=== PATIENT | male | born 1950 | race Caucasian/White ===

== ENCOUNTER 2018-12-19 08:26 | Observation (INO) | payer MEDICARE, OTHER ==
[2018-12-19] MEDS: ASPIRIN 325 MG TAB PO (08:45)
[2018-12-19 08:50] LABS: ADD MAN DIFF? NO
[2018-12-19 08:52] LABS: BASOPHILS % 0.5 % (0.0-2.0); EOSINOPHILS # 0.1 10^3/ul (0.0-0.5); EOSINOPHILS % 1.3 % (0.0-7.0); HEMATOCRIT 28.3 % (42.0-52.0); HEMOGLOBIN 9.4 g/dl (14.0-18.0); LYMPHOCYTES # 0.6 10^3/ul (0.8-2.9); LYMPHOCYTES % 15.6 % (15.0-51.0); MEAN CORPUSCULAR HEMOGLOBIN 30.8 pg (29.0-33.0); MEAN CORPUSCULAR HGB CONC 33.2 g/dl (32.0-37.0); MEAN CORPUSCULAR VOLUME 92.8 fl (82.0-101.0); MEAN PLATELET VOLUME 8.5 fl (7.4-10.4); MONOCYTE # 0.2 10^3/ul (0.3-0.9); NEUTROPHILS % 76.3 % (39.0-77.0); PLATELET COUNT 142 10^3/UL (140-415); RED BLOOD COUNT 3.05 10^6/ul (4.70-6.10); RED CELL DISTRIBUTION WIDTH 14.4 % (11.5-14.5)
[2018-12-19 09:02] LABS: HEMOGLOBIN A1C 6.2 % (0-5.9)
[2018-12-19 09:08] LABS: CHOL/HDL RATIO 3.8 RATIO; LDL CHOLESTEROL,CALCULATED 89 mg/dl
[2018-12-19 09:10] LABS: ANION GAP 15 (5-13); BLOOD UREA NITROGEN 32 mg/dl (7-20); CALCIUM 9.2 mg/dl (8.4-10.2); CARBON DIOXIDE 33 mmol/L (21-31); CHLORIDE 91 mmol/L (97-110); CHOLESTEROL 164 mg/dl (100-200); CREATINE KINASE 153 IU/L (23-200); CREATININE 4.86 mg/dl (0.61-1.24); Estimated GFR 12 mL/min (>60); GLUCOSE 103 mg/dl (70-220); HDL CHOLESTEROL 43 mg/dl (30-78); INR 0.92; POTASSIUM 3.9 mmol/L (3.5-5.1); PROTIME 12.5 Sec (11.9-14.9); SODIUM 139 mmol/L (135-144); TRIGLYCERIDES 162 mg/dl (0-149)
[2018-12-19 09:11] LABS: PARTIAL THROMBOPLASTIN TIME 32.9 Sec (23.0-35.0)
[2018-12-19 09:14] LABS: ETHANOL < 10.0 mg/dl (0-0)
[2018-12-19 09:22] LABS: CK INDEX 2.5; CK-MB 3.77 ng/ml (0.0-2.4)
[2018-12-19 09:23] LABS: TROPONIN-I 0.045 ng/ml (0.000-0.120)
[2018-12-19] MEDS ORDERED: ACETAMINOPHEN 325 MG TAB PO ×2 (10:00→12:00)
[2018-12-19] MEDS ORDERED: ONDANSETRON 4 MG INJ IV ×2 (10:00→12:00)
[2018-12-19] MEDS ORDERED: NACL 0.9% 3 ML SYG IV (12:00)
[2018-12-19] MEDS ORDERED: CALCIUM CARBONATE 750 MG CHEW TAB PO (12:30)
[2018-12-19] MEDS ORDERED: GLUCAGON 1 MG INJ IM (12:30)
[2018-12-19] MEDS ORDERED: ALBUMIN HUMAN 25% 100 ML IV (12:30)
[2018-12-19] MEDS ORDERED: GLUCOSE GEL 15 GRAM TUBE BUCCAL (12:30)
[2018-12-19] MEDS ORDERED: SODIUM CHLORIDE 0.9% 1L BAG IV (12:30)
[2018-12-19] MEDS ORDERED: GLUCOSE GEL 15 GRAM TUBE PO ×2 (12:30)
[2018-12-19] MEDS ORDERED: DEXTROSE 50% 50 ML SYRINGE IV ×2 (12:30)
[2018-12-19] MEDS ORDERED: hydrALAzine 20 MG INJ IV ×2 (12:30)
[2018-12-19] MEDS: IODIXANOL LOCM 100 ML BTL (14:47)
[2018-12-19] MEDS: SOD CHLORIDE 0.9% 100 ML (14:48)
[2018-12-19] MEDS: NIFEdipine (XL) 60 MG TAB PO (15:05)
[2018-12-19] MEDS: HEPARIN 5,000 UNIT/1 ML VIAL SC ×2 (15:09→21:13)
[2018-12-19] MEDS: NICOTINE (7 MG/24 HR) PATCH TRANSDERM (16:00)
[2018-12-19 17:05] LABS: CREATINE KINASE 135 IU/L (23-200)
[2018-12-19 17:18] LABS: CK INDEX 2.3
[2018-12-19 17:21] LABS: CK-MB 3.06 ng/ml (0.0-2.4)
[2018-12-19] MEDS: INSULIN ASPART [NOVOLOG] 3 ML PEN SC ×3 (17:55→20:54)
[2018-12-19] MEDS: CALCIUM ACETATE 667 MG CAP PO (18:15)
[2018-12-19] MEDS: SEVELAMER CARBONATE 0.8 GM PKT PO (18:16)
[2018-12-19] MEDS: ATORVASTATIN 40 MG TAB PO (20:53)
[2018-12-19] MEDS: GABAPENTIN 100 MG CAP PO (20:54)
[2018-12-19] MEDS: INSULIN GLARGINE [LANTus] (100 UNITS/ML) SYG SC (20:57)
[2018-12-20] MEDS: HEPARIN 5,000 UNIT/1 ML VIAL SC ×3 (05:10→21:12)
[2018-12-20 07:01] LABS: ADD MAN DIFF? NO
[2018-12-20 07:05] LABS: WHITE BLOOD COUNT 4.1 10^3/ul (4.8-10.8)
[2018-12-20 07:05] LABS: BASOPHILS % 0.2 % (0.0-2.0); HEMATOCRIT 26.6 % (42.0-52.0); HEMOGLOBIN 8.7 g/dl (14.0-18.0); LYMPHOCYTES # 0.9 10^3/ul (0.8-2.9); LYMPHOCYTES % 22.5 % (15.0-51.0); MEAN CORPUSCULAR HEMOGLOBIN 30.5 pg (29.0-33.0); MEAN CORPUSCULAR HGB CONC 32.7 g/dl (32.0-37.0); MEAN CORPUSCULAR VOLUME 93.3 fl (82.0-101.0); MEAN PLATELET VOLUME 9.1 fl (7.4-10.4); MONOCYTE # 0.4 10^3/ul (0.3-0.9); MONOCYTES % 9.3 % (0.0-11.0); NEUTROPHIL # 2.7 10^3/ul (1.6-7.5); NEUTROPHILS % 66.8 % (39.0-77.0); PLATELET COUNT 143 10^3/UL (140-415); RED BLOOD COUNT 2.85 10^6/ul (4.70-6.10); RED CELL DISTRIBUTION WIDTH 13.9 % (11.5-14.5)
[2018-12-20 07:35] LABS: ALANINE AMINOTRANSFERASE 10 IU/L (13-69); ALBUMIN 3.8 g/dl (3.3-4.9); ALBUMIN/GLOBULIN RATIO 1.11; ALKALINE PHOSPHATASE 69 IU/L (42-121); ANION GAP 14 (5-13); ASPARTATE AMINO TRANSFERASE 17 IU/L (15-46); BILIRUBIN,INDIRECT 0.1 mg/dl (0-1.1); BILIRUBIN,TOTAL 0.1 mg/dl (0.2-1.3); BLOOD UREA NITROGEN 50 mg/dl (7-20); CALCIUM 8.9 mg/dl (8.4-10.2); CARBON DIOXIDE 31 mmol/L (21-31); CHLORIDE 93 mmol/L (97-110); CREATININE 7.63 mg/dl (0.61-1.24); Estimated GFR 7 mL/min (>60); GLUCOSE 63 mg/dl (70-220); POTASSIUM 4.3 mmol/L (3.5-5.1); SODIUM 138 mmol/L (135-144); TOTAL PROTEIN 7.2 g/dl (6.1-8.1)
[2018-12-20 07:45] LABS: MAGNESIUM 2.5 mg/dl (1.7-2.5)
[2018-12-20 07:45] LABS: PHOSPHORUS 5.5 mg/dl (2.5-4.9)
[2018-12-20 07:55] LABS: TROPONIN-I 0.053 ng/ml (0.000-0.120)
[2018-12-20] MEDS: INSULIN ASPART [NOVOLOG] 3 ML PEN SC ×7 (07:55→21:00)
[2018-12-20] MEDS: SEVELAMER CARBONATE 0.8 GM PKT PO ×3 (08:54→17:17)
[2018-12-20] MEDS: ASPIRIN 81 MG TAB PO (08:55)
[2018-12-20] MEDS: CALCIUM ACETATE 667 MG CAP PO ×3 (08:55→17:15)
[2018-12-20] MEDS: MULTIVIT/CA CARB/B CMPLX/FA TAB PO (08:55)
[2018-12-20] MEDS: NICOTINE (7 MG/24 HR) PATCH TRANSDERM (08:55)
[2018-12-20] MEDS: NIFEdipine (XL) 60 MG TAB PO (09:00)
[2018-12-20] MEDS: ATORVASTATIN 40 MG TAB PO (20:54)
[2018-12-20] MEDS: GABAPENTIN 100 MG CAP PO (20:54)
[2018-12-20] MEDS: INSULIN GLARGINE [LANTus] (100 UNITS/ML) SYG SC (21:02)
[2018-12-21] MEDS: HEPARIN 5,000 UNIT/1 ML VIAL SC ×2 (06:39→15:25)
[2018-12-21] MEDS: INSULIN ASPART [NOVOLOG] 3 ML PEN SC ×4 (07:55→12:34)
[2018-12-21] MEDS: CALCIUM ACETATE 667 MG CAP PO ×2 (08:16→12:31)
[2018-12-21] MEDS: SEVELAMER CARBONATE 0.8 GM PKT PO ×2 (08:16→12:30)
[2018-12-21] MEDS: NICOTINE (7 MG/24 HR) PATCH TRANSDERM (08:16)
[2018-12-21] MEDS: MULTIVIT/CA CARB/B CMPLX/FA TAB PO (08:16)
[2018-12-21] MEDS: ASPIRIN 81 MG TAB PO (08:16)
[2018-12-21 08:25] LABS: ADD MAN DIFF? NO
[2018-12-21 08:28] LABS: BASOPHILS % 0.4 % (0.0-2.0); EOSINOPHILS # 0.1 10^3/ul (0.0-0.5); HEMATOCRIT 26.3 % (42.0-52.0); HEMOGLOBIN 8.8 g/dl (14.0-18.0); LYMPHOCYTES # 0.9 10^3/ul (0.8-2.9); LYMPHOCYTES % 18.2 % (15.0-51.0); MEAN CORPUSCULAR HGB CONC 33.5 g/dl (32.0-37.0); MEAN CORPUSCULAR VOLUME 89.8 fl (82.0-101.0); MONOCYTE # 0.5 10^3/ul (0.3-0.9); MONOCYTES % 9.4 % (0.0-11.0); NEUTROPHIL # 3.4 10^3/ul (1.6-7.5); NEUTROPHILS % 70.8 % (39.0-77.0); PLATELET COUNT 149 10^3/UL (140-415); RED BLOOD COUNT 2.93 10^6/ul (4.70-6.10); RED CELL DISTRIBUTION WIDTH 13.7 % (11.5-14.5)
[2018-12-21 08:28] LABS: WHITE BLOOD COUNT 4.8 10^3/ul (4.8-10.8)
[2018-12-21 08:58] LABS: ANION GAP 19 (5-13); BLOOD UREA NITROGEN 70 mg/dl (7-20); CARBON DIOXIDE 27 mmol/L (21-31); CHLORIDE 91 mmol/L (97-110); Estimated GFR 5 mL/min (>60); GLUCOSE 57 mg/dl (70-220); POTASSIUM 5.2 mmol/L (3.5-5.1); SODIUM 137 mmol/L (135-144)
[2018-12-21 09:10] LABS: MAGNESIUM 2.7 mg/dl (1.7-2.5)
[2018-12-21 09:10] LABS: PHOSPHORUS 6.2 mg/dl (2.5-4.9)
[2018-12-21 11:19] LABS: HEPATITIS B SURFACE ANTIGEN NEGATIVE (NEGATIVE)
[2018-12-21] MEDS: NIFEdipine (XL) 60 MG TAB PO (14:42)
== END 2018-12-21 16:30 | disposition home or self-care (01) ==
LOC: E/R 08:26 → TEL 09:51
PROVIDERS: Internal Medicine
DX: G93.40 Encephalopathy, unspecified (principal); I65.23 Occlusion and stenosis of bilateral carotid arteries; I65.02 Occlusion and stenosis of left vertebral artery; I70.8 Atherosclerosis of other arteries; I12.0 Hypertensive chronic kidney disease with stage 5 chronic kidney disease or end stage renal disease; E11.22 Type 2 diabetes mellitus with diabetic chronic kidney disease; N18.6 End stage renal disease; Z99.2 Dependence on renal dialysis; Z79.4 Long term (current) use of insulin; E78.00 Pure hypercholesterolemia, unspecified; E78.5 Hyperlipidemia, unspecified; D64.9 Anemia, unspecified; F17.200 Nicotine dependence, unspecified, uncomplicated
CPT/HCPCS: 36415; 70450; 70496; 70498; 70551; 71045; 71275; 80048; 80053; 80061; 80307; 82550; 82553; 82962; 83036; 83735; 84100; 84484; 85025; 85610; 85730; 87081; 87340; 90935; 92610; 93005; 93306; 97161; 99291-25; G0378